=== PATIENT | male | born 1995 | race Caucasian/White ===

== ENCOUNTER 2021-07-28 20:26 | Emergency (ER) | payer SELFPAY ==
[2021-07-28 20:58] VITALS: O2SAT 100
--- NOTE | 2021-07-28 21:22 | ERPHSYRPT ---
- History of Present Illness Source: patient Exam Limitations: no limitations Patient Subjective Stated Complaint: C/O pain to left elbow and just distal to elbow. Patient states he fell at home approx 1 hour prior to coming to the ED. Patient indicates he was attempting to keep his child from flipping over in his highchair by jumping over a baby gate to get to him. Patient did not clear the gate, catching his foot on the top of gate and falling to the floor. Patient states he fell elbows first. Small abrasion noted to right elbow but ROM to that arm is WNL. No swelling to right elbow. Patient denies pain or deformities to right elbow. Triage Nursing Assessment: Patient ambulated back to ED without difficulties. He is alert and oriented and answering questions appropriately. Patient has left arm drawn up across his chest upon entering ED; gaurding left arm. Left elbow is slightly swollen. No bruising noted to left arm/elbow and skin is intact to left arm/elbow. Decreased mobility to left arm/elbow. Radial pulse present. CMS to digits of left hand WNL. Physician History: 26 yo wm injured L olecranon in a fall while trying to rescue his child falling from high chair. Pt is R handed and denies other/previous injury. Occurred: just prior to arrival Method of Injury: unknown, fell Severity of Pain-Max: moderate Severity of Pain-Current: moderate Extremities Pain Location: elbow: left Modifying Factors: Improves With: movement Associated Symptoms: none Allergies/Adverse Reactions: Penicillins Allergy (Verified 07/28/21 20:37) Hx Tetanus, Diphtheria Vaccination/Date Given: No (Not tetanus) Hx Influenza Vaccination/Date Given: No Hx Pneumococcal Vaccination/Date Given: No Immunizations Up to Date: Yes Travel Risk - International Travel Have you traveled outside of the country in past 3 weeks: No (N) If Yes, where;: N - Coronavirus Screening Close contact with a COVID-19 positive Pt in past 14-21 Days: No - Vaccine Status Have you recieved a Covid-19 vaccination: No - Review of Systems Constitutional: No Symptoms Eyes: No Symptoms Ears, Nose, & Throat: No Symptoms Respiratory: No Symptoms Cardiac: No Symptoms Abdominal/Gastrointestinal: No Symptoms Genitourinary Symptoms: No Symptoms Skin: No Symptoms Neurological: No Symptoms Psychological: No Symptoms Endocrine: No Symptoms Hematologic/Lymphatic: No Symptoms Immunological/Allergic: No Symptoms - Past Medical History Pertinent Past Medical History: Yes Neurological History: No Pertinent History ENT History: Other Cardiac History: No Pertinent History Respiratory History: No Pertinent History Endocrine Medical History: No Pertinent History Musculoskeletal History: Fractures GI Medical History: No Pertinent History History: No Pertinent History Psycho-Social History: No Pertinent History Male Reproductive Disorders: No Pertinent History Other Medical History: Seasonal allergies - Past Surgical History Past Surgical History: Yes Neuro Surgical History: No Pertinent History Cardiac: No Pertinent History Respiratory: No Pertinent History Gastrointestinal: No Pertinent History Genitourinary: No Pertinent History Musculoskeletal: No Pertinent History Male Surgical History: No Pertinent History Other Surgical History: Tubes in ears - Social History Smoking Status: Never smoker Exposure to second hand smoke: No Drug Use: none Patient Lives Alone: No Significant Family History: no pertinent family hx - Nursing Vital Signs Nursing Vital Signs: Initial Vital Signs Temperature 99.4 F 07/28/21 20:41 Pulse Rate 98 H 07/28/21 20:41 Respiratory Rate 20 07/28/21 20:41 Blood Pressure 150/94 07/28/21 20:41 O2 Sat by Pulse Oximetry 100 07/28/21 20:41 Pain Scale Pain Intensity 9 Hypertensive - Physical Exam General Appearance: no apparent distress Eyes, Ears, Nose, Throat Exam: normal ENT inspection, TMs normal, pharynx normal, pharyngeal erythema Neck Exam: normal inspection, non-tender (C-spine NTTP) Cardiovascular/Respiratory Exam: chest non-tender, normal breath sounds, regular rate/rhythm, heart sounds normal, no respiratory distress Abdominal Exam: non-tender, soft Back Exam: normal inspection (No T/L-spine TTP) Shoulder Exam: normal inspection Elbow/Forearm Exam: pain (L posterior olecranon TTP/Mild edema/Good radial pulse, distal sensation, and capillary return) Wrist Exam: normal inspection, non-tender, no evidence of injury Hand Exam: normal inspection, non-tender, no evidence of injury DTR - Upper Extremity Exam: bicep (R): 2+, bicep (L): 2+ Neuro/Tendon Exam: normal sensation, normal motor functions, normal tendon functions, responds to pain, no evidence tendon injury Mental Status Exam: alert, oriented x 3, cooperative Skin Exam: normal color, warm, dry SpO2 Interpretation: normal SpO2: 100 O2 Delivery: Room Air Procedures - Splinting Location of Splint: Left, Elbow Type of Splint: Other (Orthoglass Sugar Tong) Splint Applied By: ED Physician Pre-Proc Neuro Vasc Exam: normal Post-Proc Neuro Vasc Exam: neurovascular intact - Course Nursing assessment & vital signs reviewed: Yes - Radiology Exams Elbow X-ray Interpretation: Interpreted by me (L radial head fx) Ordered Tests: Active Orders 24 hr Category Date Time Status Sling Application STAT Care 07/28/21 21:32 Completed ELBOW (MINIMUM 3 VIEWS) Stat Exams 07/28/21 Taken Medication Summary Discontinued Medications Generic Name Dose Route Start Last Admin Trade Name Freq PRN Reason Stop Dose Admin Hydrocodone Bitart/Acetaminophen 1 tablet 07/28/21 21:23 07/28/21 21:31 Hydrocodone/Acetamin 10-325 Mg Tablet PO 07/28/21 21:24 1 tablet STAT ONE Administration - Progress Progress Note: 07/28/21 21:24 Sagle 10 po x1 07/28/21 21:33 XR's reviewed w pt 07/28/21 22:50 Sling LUE per nursing/NVI Counseled pt/family regarding: diagnosis, need for follow-up, rad results - Departure Departure Disposition: Home Clinical Impression: Fracture of radial head, left, closed Condition: Stable Critical Care Time: No Referrals: DOCTOR,NO FAMILY [Primary Care Provider] - Follow up/PCP as directed [facility] - BRIDGETT BOYD NP [NON-STAFF PHY W/O PRIVILEGES] - Follow up/PCP as directed Instructions: Radius Fracture (DC) Additional Instructions: Ice for 12-24 hours Pain meds as needed Follow up with Orthopedic clinic Prescriptions: Hydrocodone/Acetaminophen [Hydrocodone-Acetamin 10-325 mg] 1 each PO Q6H PRN PRN #10 tablet MDD 4 tabs PRN Reason: Pain
[2021-07-28] MEDS: HYDROCODONE-ACETAMIN 10-325 MG PO ONE (21:31)
[2021-07-28 21:37] VITALS: BP 146/84; PULSE 91
--- NOTE | 2021-07-29 09:11 | XRAY ---
Indication: Pain following fall. Comparison: None 3 view left elbow demonstrates nondisplaced radial head fracture with small effusion. No other bony, articular, or soft tissue abnormalities.
== END 2021-07-28 21:40 | disposition home or self-care (01) ==
LOC: ED 20:26
DX: S52.122A Displaced fracture of head of left radius, initial encounter for closed fracture (principal); W18.09XA Striking against other object with subsequent fall, initial encounter; Y92.000 Kitchen of unspecified non-institutional (private) residence as the place of occurrence of the external cause; Z79.891 Long term (current) use of opiate analgesic
CPT/HCPCS: 29105; 73080; 99283; A9270-GY